=== PATIENT | female | born 1980 | race Caucasian/White ===

== ENCOUNTER 2022-03-05 10:30 | Observation (INO) | payer OTHER, MEDICAID, SELFPAY ==
[2022-03-05 11:16] LABS: Hematocrit 34.7 % (36-46); Hemoglobin 11.8 g/dL (12.0-16.0); Mean Corpuscular Hemoglobin 29.4 PG (26-34); Mean Corpuscular Volume 86.5 fL (80-100); Platelet Count 195 X10^3/uL (150-400); Red Blood Cell Count 4.02 X10^6/uL (4.0-5.2); Red Cell Distribution Width 13.8 % (11.6-14.8); White Blood Cell Count 9.7 X10^3/uL (4.5-11.0)
[2022-03-05 11:58] LABS: GTT (PREG) 1 Hour PP 50gm Dose 118 mg/dL (76-139)
== END 2022-03-05 11:10 | disposition home or self-care (01) ==
LOC: LABOR 10:32
PROVIDERS: Admitting Provider Nurse Practitioner Obstetrics & Gynecology; Family Provider Specialist; PCP Specialist; Referring Provider Nurse Practitioner Obstetrics & Gynecology; Visit Provider Nurse Practitioner Obstetrics & Gynecology
DX: O09.529 Supervision of elderly multigravida, unspecified trimester (principal)
CPT/HCPCS: 82950; 85027; G0378; G0379

== ENCOUNTER → 2022-04-02 16:28 | Outpatient (CLI) | payer OTHER, MEDICAID, SELFPAY ==
--- NOTE | 2022-04-02 | DI.US.S_ITS ---
PROCEDURE: US OB LIMITED INDICATIONS: GROWTH OUTSIDE/PRIOR DATING DATA: Last menstrual period (LMP): 08/21/2021 LMP-based estimated date of delivery (PRABHU): 05/28/2022 First dating scan (date and location): 09/07/2021 Estimated date of delivery (PRABHU) from first dating scan: 05/31/2022. The calculations are made using the working PRABHU of 05/28/2022. TECHNIQUE: Real-time scanning was performed of the fetus, with image documentation and biometric measurements. Endovaginal scanning: Not indicated COMPARISON: Outside Facility, , OB > 14 WEEKS, 01/07/2022, 13:14. [facility], [facility], 05/17/2013, 8:30. FINDINGS: General: A single living intrauterine gestation is present. Presentation: Breech Placenta: Placental position is right posterior, without previa. Amniotic fluid index: 17.8 cm, normal range is 5-24 cm. Single deepest vertical pocket is 6.9 cm. heart rate: 155 beats per minute. Maternal cervical canal: 3.1 cm long. Normal lower limit is 2.5 cm. biometrics: Biparietal diameter: 8.1 cm, 32 weeks, 3 days. Head circumference: 29.4 cm, 32 weeks, 3 days. Abdominal circumference: 29.6 cm, 33 weeks, 4 days. Femur length: 6.5 cm, 33 weeks, 4 days. Clinically estimated gestational age: 32 weeks, 0 day. Composite gestational age from present scan: 33 weeks, 0 day. Estimated weight and percentile: 2179 g, 82%. Other: 5.5 x 5.1 x 2.6 cm subserosal fibroid in anterior myometrium superior and to the left of umbilicus is seen. IMPRESSION: 1. Single live intrauterine gestation with fetus in breech presentation. heart rate is 155 beats per minute. Normal amount of amniotic fluid. Normal growth. Estimated weight is at 82%. 2. Uterine fibroid as described above. We strive to produce accurate, complete, and clear reports of imaging services. To assist us in improving patient care, this report was composed using standard report templates and voice recognition software. Therefore, it may contain abnormal punctuation, insertions and/or omissions. Occasional wrong-word or sound-alike substitutions may occur. Though we review the report and make efforts to correct it, we do recommend that the report be read carefully in proper context to recognize any text inaccuracies. Dictated by: Edwin Will M.D. on 04/03/2022 at 12:15 Approved by: Edwin Will M.D. on 04/03/2022 at 12:23
== END ==
PROVIDERS: Family Provider Specialist; PCP Nurse Practitioner Family; Referring Provider Nurse Practitioner Obstetrics & Gynecology; Visit Provider Nurse Practitioner Obstetrics & Gynecology
DX: O09.93 Supervision of high risk pregnancy, unspecified, third trimester (principal); O34.13 Maternal care for benign tumor of corpus uteri, third trimester; D25.2 Subserosal leiomyoma of uterus; Z3A.33 33 weeks gestation of pregnancy
CPT/HCPCS: 76815

== ENCOUNTER → 2022-04-23 14:17 | Outpatient (CLI) | payer OTHER, MEDICAID, SELFPAY ==
--- NOTE | 2022-04-23 | DI.US.S_ITS ---
PROCEDURE: US OB BIOPHYSICAL PROFILE INDICATIONS: Biophysical profile OUTSIDE/PRIOR DATING DATA: Last menstrual period (LMP): 08/21/2021 LMP-based estimated date of delivery (PRABHU): 05/28/2022. First dating scan (date and location): 01/03/2022. Estimated date of delivery (PRABHU) from first dating scan: 05/31/2022. TECHNIQUE: Real-time scanning was performed of the fetus, with image documentation and biometric measurements. Biophysical profile was also obtained. COMPARISON: [facility], OB LIMITED, 04/02/2022, 16:38. FINDINGS: General: A single living intrauterine gestation is present. Presentation: Vertex. Placenta: Placental position is posterior , without previa. Amniotic fluid index: 15.5 cm, normal range is 5-24 cm. Single deepest vertical pocket is 6.2 cm. heart rate: 136 beats per minute. Maternal cervical canal: 3.4 cm long. Normal lower limit is 2.5 cm. Composite gestational age from present scan: 35 weeks 0 days. Biophysical profile: Tone: 2 points. Movement: 2 points. Respiration: 2 points. Largest pocket of fluid: 2 points. IMPRESSION: Normal biophysical profile score of 8/8 possible points. We strive to produce accurate, complete, and clear reports of imaging services. To assist us in improving patient care, this report was composed using standard report templates and voice recognition software. Therefore, it may contain abnormal punctuation, insertions and/or omissions. Occasional wrong-word or sound-alike substitutions may occur. Though we review the report and make efforts to correct it, we do recommend that the report be read carefully in proper context to recognize any text inaccuracies. Dictated by: Ayad Ruiz [facility] Interpreted: Edwin Will MD on 04/23/2022 at 15:24 Transcribed by: ARTUR on 04/23/2022 at 16:04 Approved by: Edwin Will M.D. on 04/23/2022 at 16:36
== END ==
PROVIDERS: Family Provider Specialist; PCP Nurse Practitioner Family; Referring Provider Nurse Practitioner Obstetrics & Gynecology; Visit Provider Nurse Practitioner Obstetrics & Gynecology
DX: O09.523 Supervision of elderly multigravida, third trimester (principal); O28.9 Unspecified abnormal findings on antenatal screening of mother; Z3A.36 36 weeks gestation of pregnancy
CPT/HCPCS: 76819

== ENCOUNTER → 2022-05-02 15:42 | Outpatient (CLI) | payer OTHER, MEDICAID, SELFPAY ==
--- NOTE | 2022-05-02 | DI.US.S_ITS ---
PROCEDURE: US OB LIMITED INDICATIONS: GROWTH OUTSIDE/PRIOR DATING DATA: Last menstrual period (LMP): 08/21/2021. LMP-based estimated date of delivery (PRABHU): 05/28/2022. First dating scan (date and location): 01/07/2022. Estimated date of delivery (PRABHU) from first dating scan: 05/31/2022. The calculations are made using the clinical PRABHU of 05/28/2022. TECHNIQUE: Real-time scanning was performed of the fetus, with image documentation. COMPARISON: [facility], OB LIMITED, 04/02/2022, 16:38. FINDINGS: A single living intrauterine gestation is present. Presentation: Cephalic. Placenta: Placental position is posterior, without previa. Amniotic fluid index: 13.5 cm, normal range is 5-24 cm. Single deepest vertical pocket is 4 cm. heart rate: 152 beats per minute. Maternal cervical canal: 3.4 cm long. Normal lower limit is 2.5 cm. Biometric measurements: BPD: 9.1 cm, 37 weeks 0 days HC: 32.4 cm, 36 weeks 4 days AC: 34.2 cm, 38 weeks 1 day FL: 6.8 cm, 35 weeks 0 days Clinically estimated gestational age: 36 weeks 2 days Estimated gestational age from today's scan: 36 weeks 5 days. Estimated weight and percentile: 3118 g, 75th percentile IMPRESSION: 1. Powell living intrauterine at 36 weeks 5 days based on today's ultrasound. Fetus is at the 75th percentile for weight. 2. Normal placenta and amniotic fluid. Dictated by: Brijesh Torres M.D. on 05/02/2022 at 16:51 Approved by: Brijesh Torres M.D. on 05/02/2022 at 16:55
== END ==
PROVIDERS: Family Provider Specialist; PCP Nurse Practitioner Family; Referring Provider Nurse Practitioner Obstetrics & Gynecology; Visit Provider Advanced Practice Midwife
DX: O09.523 Supervision of elderly multigravida, third trimester (principal); O28.9 Unspecified abnormal findings on antenatal screening of mother; Z3A.36 36 weeks gestation of pregnancy
CPT/HCPCS: 76815

== ENCOUNTER → 2022-05-09 13:41 | Outpatient (CLI) | payer OTHER, MEDICAID, SELFPAY ==
--- NOTE | 2022-05-09 | DI.US.S_ITS ---
PROCEDURE: US OB BIOPHYSICAL PROFILE INDICATIONS: BPP OUTSIDE/PRIOR DATING DATA: Last menstrual period (LMP): 08/21/2021. LMP-based estimated date of delivery (PRABHU): 05/28/2022. First dating scan (date and location): 01/07/2022. Estimated date of delivery (PRABHU) from first dating scan: 05/31/2022. The calculations are made using the working PRABHU of 05/28/2022. TECHNIQUE: Real-time scanning was performed of the fetus, with image documentation and biometric measurements. Biophysical profile was also obtained. Endovaginal scanning: Non COMPARISON: [facility], OB BIOPHYSICAL PROFILE, 04/23/2022, 14:31. FINDINGS: General: A single living intrauterine gestation is present. Presentation: Cephalic. Placenta: Placental position is posterior , without previa. Amniotic fluid index: 20.6 cm, normal range is 5-24 cm. Single deepest vertical pocket is 7.0 cm. heart rate: 153 beats per minute. Maternal cervical canal: Nonvisualized Biophysical profile: Tone: 2 points. Movement: 2 points. Respiration: 2 points. Largest pocket of fluid: 2 points. IMPRESSION: Single live intrauterine consistent with 37 week 2 day gestation by dates Biophysical profile score 8 out of 8 Approved by: Oscar Ortega M.D. on 05/09/2022 at 16:39
== END ==
PROVIDERS: Family Provider Specialist; PCP Nurse Practitioner Family; Referring Provider Advanced Practice Midwife; Visit Provider Advanced Practice Midwife
DX: O09.93 Supervision of high risk pregnancy, unspecified, third trimester (principal); O09.523 Supervision of elderly multigravida, third trimester; Z3A.37 37 weeks gestation of pregnancy
CPT/HCPCS: 76819

== ENCOUNTER → 2022-05-15 15:43 | Outpatient (CLI) | payer OTHER, MEDICAID, SELFPAY ==
--- NOTE | 2022-05-15 15:46 | DI.US.S_ITS ---
PROCEDURE: US OB BIOPHYSICAL PROFILE INDICATIONS: BPP OUTSIDE/PRIOR DATING DATA: Last menstrual period (LMP): 08/21/2021. LMP-based estimated date of delivery (PRABHU): 05/28/2022. First dating scan (date and location): 12/2021. Estimated date of delivery (PRABHU) from first dating scan: 05/31/2022. The calculations are made using the working PRABHU of 05/28/2021. TECHNIQUE: Real-time scanning was performed of the fetus, with image documentation and biometric measurements. Biophysical profile was also obtained. Endovaginal scanning: Not performed. COMPARISON: [facility], OB BIOPHYSICAL PROFILE, 05/09/2022, 13:50. [facility], OB LIMITED, 05/02/2022, 16:21. [facility], OB LIMITED, 04/02/2022, 16:38. [facility], OB BIOPHYSICAL PROFILE, 04/23/2022, 14:31. FINDINGS: General: A single living intrauterine gestation is present. Presentation: Vertex. Placenta: Placental position is posterior, without previa. Amniotic fluid index: 9.4 cm, normal range is 5-24 cm. Single deepest vertical pocket is 4.9 cm. heart rate: 144 beats per minute. Maternal cervical canal: Not visualized. Biophysical profile: Tone: 2 points. Movement: 2 points. Respiration: 2 points. Largest pocket of fluid: 2 points. IMPRESSION: 1. A single living intrauterine gestation redemonstrated. 2. Normal biophysical profile. We strive to produce accurate, complete, and clear reports of imaging services. To assist us in improving patient care, this report was composed using standard report templates and voice recognition software. Therefore, it may contain abnormal punctuation, insertions and/or omissions. Occasional wrong-word or sound-alike substitutions may occur. Though we review the report and make efforts to correct it, we do recommend that the report be read carefully in proper context to recognize any text inaccuracies. Dictated by: Tu Morgan M.D. on 05/16/2022 at 12:21 Approved by: Tu Morgan M.D. on 05/16/2022 at 12:24
== END ==
PROVIDERS: Family Provider Specialist; PCP Nurse Practitioner Family; Referring Provider Nurse Practitioner Obstetrics & Gynecology; Visit Provider Nurse Practitioner Obstetrics & Gynecology
DX: O09.93 Supervision of high risk pregnancy, unspecified, third trimester (principal); O09.529 Supervision of elderly multigravida, unspecified trimester
CPT/HCPCS: 76819

== ENCOUNTER 2022-05-18 01:31 | Inpatient (IN) | payer OTHER, MEDICAID, SELFPAY ==
--- NOTE | 2022-05-18 02:08 | PM.OBHP.1 ---
OB HPI Date/Time Date of admission: 05/18/22 Date Patient Seen: 05/18/22 Time Patient Seen: 02:08 History of Present Condition Chief complaint: : 5 Para: 3 Estimated Date of Delivery: 05/28/22 Estimated Gestational Age (weeks): 38.4 Narrative: Radha Marcano is a 41 year old female @ [id number] by LMP and 15wk US who presents for evaluation of labor. Contractions started around midnight and have steadily progressed in frequency and intensity. +FM. No vaginal bleeding or loss of fluid. complicated by cfDNA result POSITIVE for 45,X aneuploidy with subsequently normal ultrasound findings and antental testing. Britt desires a low intervention and her is supportive at her side. History of Present care: good care, initiated at week # (16), number of visits (8) and pounds weight gain (17) Dating criteria: LMP confirmed by 2nd trimester US Ultrasounds: normal mid trimester US Obstetrical complications: none Medical complications: none Preadmission Labs Blood type: O (+) positive -: Antibody screen: negative, GBS status: negative, HBsAG: negative, HIV: negative and RPR/VDLR: negative -: Chlamydia screen: not detected and Gonorrhea screen: not detected -: Rubella: immune and Varicella: immune HCT: 34.7 HCAB: negative Cell-free DNA: Negative for trisomy 21, 13 & 18, 45,X aneuploidy suspected 1 hr GTT: 118 Prior (ies) History: Term NSVB x3 (retained placenta and PPH w/ P1), SAB x1 Evaluation Evaluation Baseline heart rate: 125 Variability: Moderate (11-25) monitor accelerations: Present Monitor Decelerations: Early Contraction Frequency (minutes): 4 Uterine Contraction Intensity: Strong/Firm Status: Category l Dilation (cm): 8 Effacement (%): 100 station: -2 Comments: [facility] Medical History (Updated 05/18/22 @ 02:17 by Di Nichole CNM) Anemia Surgical History (Updated 05/18/22 @ 02:17 by Di Nichole CNM) H/O dilation and curettage Family History (Updated 04/29/16 @ 00:00 by Conversion Provider) Grandfather High cholesterol Social History (Updated 05/18/22 @ 02:18 by Di Nichole CNM) marital status: number of children: 3 household members: spouse and children lives independently: Yes housing: house education level: high school occupational status: employed Smoking Status: Never smoker Meds Home Medications and Allergies Allergies Allergy/AdvReac Type Severity Reaction Status Date / Time Pertussis Vaccines Allergy Unknown elevated Unverified 07/09/17 13:11 [PERTUSSIS VACCINES] temp tetanus toxoid, adsorbed Allergy Unknown elevated Unverified 07/09/17 13:11 [TETANUS TOXOID, ADSORBED] temp Diphtheria toxin derived Allergy Unknown elevated Uncoded 07/09/17 13:11 product temp Review of Systems Review of Systems ROS: Yes All systems reviewed with the patient and are negative except as otherwise documented OB Exam Vital signs Blood Pressure: 131/62 Pulse Rate: 85 Temperature: 96.1 F Presentation: vertex Assessment and Plan Assessment and Plan Assessment and Plan narrative: A: Term multipara AMA Active labor No indication for GBS prophylaxis Cat I FHR Suspected 45X aneuploidy P: Admit, routine orders. Continuous labor support. Anticipate NSVB. Will collect green top tube at from cord blood for Karyotyping.
[2022-05-18 02:21] VITALS: BP 131/62; PULSE 85; TEMP 35.6
[2022-05-18 02:49] LABS: Add Manual Diff / Slide Review NO; Basophils Absolute Auto 100 /uL (0-100); Basophils Percent Auto 0.5 % (0-2); Eosinophils Absolute Auto 0 /uL (0-450); Eosinophils Percent Auto 0.2 % (2-4); Hemoglobin 12.3 g/dL (12.0-16.0); Lymphocytes Absolute Auto 1700 /uL (1100-4500); Lymphocytes Percent Auto 11.6 % (25-40); Mean Corpuscular HGB Conc 33.3 % (30-36); Mean Corpuscular Hemoglobin 28.9 PG (26-34); Mean Corpuscular Volume 86.9 fL (80-100); Monocytes Absolute Auto 1100 /uL (0-900); Monocytes Percent Auto 7.3 % (3-14); Neutrophils Absolute Auto 11700 /uL (1500-7000); Neutrophils Percent Auto 80.4 % (50-75); Platelet Count 175 X10^3/uL (150-400); Red Blood Cell Count 4.26 X10^6/uL (4.0-5.2); Red Cell Distribution Width 14.4 % (11.6-14.8); White Blood Cell Count 14.5 X10^3/uL (4.5-11.0)
--- NOTE | 2022-05-18 04:28 | PM.OBPRVD ---
Labor & Delivery Delivery date: 05/18/22 Cervical ripening method: none Induction method: none Delivery monitor: external FHT and external uterine Route of delivery: Episiotomy description: None L&D Laceration Description: None Quantitative Blood Loss: 100 Anesthesia Type: Other (NO2) Narrative: Britt labored well on her right side in bed with nitrous oxide for labor analgesia and Cat I FHR. Was presumed complete with spontaneous urge to push. NSVB of a vigorous baby girl in JORGE ALBERTO position. There was no nuchal cord and the shoulders delivered easily without additional maneuvers. Offerman was placed on maternal chest for drying and skin to skin. After 2 minutes of delayed cord clamping, the cord was double clamped by CNM and cut by FOB. Hospital cord blood sample was collected for ABO/Rh and karyotype analysis. 30 units of pitocin in 500mL LR was started at 250mL/hr for AMTSL. Gentle cord traction and a single maternal push led to spontaneous, Schultze delivery of an apparently intact placenta, membranes and 3VC. Fundus immediately firm and bleeding minimal. QBL 100mL. Vagina and perineum inspected and intact. Both mother and baby stable and skin to skin as I left the room. Offerman Baby 1: Infant gender: Female Presentation: vertex Position: Right Occiput Anterior Placenta delivery description: Spontaneous Cord Vessel Description: 3 Vessels score (1 min): 8 score (5 min): 9 weight: 3.941 kg Plan for aftercare: Routine care
[2022-05-18] MEDS: KETOROLAC 30 MG/ML VIAL IV (05:25)
[2022-05-18] MEDS: LANOLIN OINT 7 GM 1 APPLIC TOP (19:48)
--- NOTE | 2022-05-19 08:07 | PM.OBDS.1 ---
Discharge Providers Provider Date of admission: 05/18/22 01:31 Discharge Date: 05/19/22 Primary care physician: LOUISA Zhong Consults: 05/19/22 04:26 Consult to Fast Food Restaurant Manager Routine Comment: Discharge provider: Di Nichole CNM Summary Hospital Course Date Patient Seen: 05/19/22 Time Patient Seen: 08:07 Diagnoses: O80 Hospital Course: PPD1: Stable s/p NSVB with no tearing. Voiding, ambulating and independently. Tolerating a general diet. Vaginal bleeding is light, without clots. Declining pain medication. Feeling ready for discharge to home. Peripartum Data Infant Delivery Method: Natural Vaginal Laceration Description: None Episiotomy description: None Procedures: O80 complications: none 1: Gender: Female Status at Discharge Cognitive/behavioral status at discharge: oriented and calm Overall status at discharge: patient is progressing back to baseline Time Spent with Patient Time attestation: Total time spent providing and/or coordinating discharge services: Time spent: Less than 30 minutes Objective Labs 05/18/22 02:25 Exam Vital Signs (past 8 hours): BP 127/80, HR 95bpm, T 16/min, T 97.6F axillary Other: Fundus firm @ U, lochia scant to moderate, without clots. Perineum intact. Discharge Plan Discharge Plan Patient Disposition: Home Discharge orders & Medications Prescriptions: New ibuprofen 600 mg Tablet 600 mg PO Q6HR PRN (Reason: Pain, Mild (1-3)) 14 Days Qty: 60 0RF No Action No Known Home Medications Follow up/Referrals: Bambi Jones ARNP [Primary Care Provider] - Di Nichole CNM [Advanced Person Investigator] - (Follow-up by Telehealth 05/28/22 @ 1015am Follow-up in office 06/28/22 @ 1115am) Diet/Activity/Treatments Diet: Diet as Tolerated and Regular Activity: pelvic rest x 6 weeks Skin/Wound/Dressing Care Report to your healthcare provider any signs of infection, such as:: chills, fever, increased pain, unusual drainage and unusual redness Visit Report/Discharge Packet Instructions: DI for Depression Stand Alone Forms: Patient Portal/API, Stroke Signs & Symptoms Discharge Data Primary Care Provider: Bambi Jones
[2022-05-19 10:52] VITALS: BP 124/84; PULSE 84; RESP 16; TEMP 36.4
== END 2022-05-19 13:30 | disposition home or self-care (01) | DRG 560 ==
PROVIDERS: Admitting Provider Nurse Practitioner Obstetrics & Gynecology; Family Provider Specialist; PCP Nurse Practitioner Family; Referring Provider Nurse Practitioner Obstetrics & Gynecology; Visit Provider Nurse Practitioner Obstetrics & Gynecology
DX: O28.5 Abnormal chromosomal and genetic finding on antenatal screening of mother (principal); Z3A.38 38 weeks gestation of pregnancy; Z37.0 Single live birth
CPT/HCPCS: 36415; 59025; 59050; 85025; 86850; 86900; 86901; G0379; J1885